=== PATIENT | female | born 1980 | race Caucasian/White ===

== ENCOUNTER 2017-08-06 10:53 | Emergency (ER) | payer SELFPAY ==
[~2017-08-06] VITALS: Ht 165.1 cm; Wt 77.1 kg
[2017-08-06 11:46] VITALS: BP 128/60; Ht 165.1 cm; Wt 77.1 kg
== END 2017-08-06 12:59 | disposition home or self-care (01) ==
LOC: ED 10:53
DX: J45.901 Unspecified asthma with (acute) exacerbation (principal); M32.9 Systemic lupus erythematosus, unspecified
CPT/HCPCS: J7512; J7613; J7644

== ENCOUNTER 2017-08-16 10:22 | Emergency (ER) | payer MEDICAID ==
[~2017-08-16] VITALS: Ht 162.6 cm; Wt 82.5 kg
[2017-08-16 10:24] VITALS: Ht 162.6 cm; Wt 82.5 kg
[2017-08-16 11:12] LABS: CALCIUM 8.5 mg/dL (8.5-10.1); CHLORIDE SERUM 107 mmol/L (98-107); GFR1 > 60 mL/min; GLUCOSE SERUM 94 mg/dL (74-106); POTASSIUM SERUM 4.1 mmol/L (3.5-5.1); SODIUM SERUM 140 mmol/L (136-145)
[2017-08-16 11:24] LABS: BASOPHIL % 0.5 % (0-2); PLATELET COUNT 358 x10^3mcL (130-400)
[2017-08-16 11:26] LABS: RED CELL DISTRIBUTION WIDTH 17.2 % (11.5-14.5)
[2017-08-16 11:30] LABS: rbc morphology (normal/abnorm) ABNORMAL (NORMAL)
[2017-08-16 13:03] LABS: BASOPHIL % 0.4 % (0-2); PLATELET COUNT 318 x10^3mcL (130-400)
[2017-08-16 13:06] LABS: RED CELL DISTRIBUTION WIDTH 17.2 % (11.5-14.5)
[2017-08-16 13:07] LABS: rbc morphology (normal/abnorm) ABNORMAL (NORMAL)
[2017-08-16 13:26] VITALS: BP 131/67
== END 2017-08-16 13:26 | disposition home or self-care (01) ==
LOC: ED 10:22
PROVIDERS: Emergency Medicine
DX: N93.8 Other specified abnormal uterine and vaginal bleeding (principal); J45.909 Unspecified asthma, uncomplicated; F17.200 Nicotine dependence, unspecified, uncomplicated; M32.9 Systemic lupus erythematosus, unspecified
CPT/HCPCS: J1410; J3490; J7030; Q0092

== ENCOUNTER 2017-11-04 11:49 | Emergency (ER) | payer SELFPAY ==
[~2017-11-04] VITALS: Ht 162.6 cm; Wt 81.6 kg
[2017-11-04 12:52] VITALS: BP 145/88
== END 2017-11-04 12:52 | disposition home or self-care (01) ==
LOC: ED 11:49
DX: L29.9 Pruritus, unspecified (principal); J45.909 Unspecified asthma, uncomplicated

== ENCOUNTER 2018-11-15 18:56 | Emergency (ER) | payer MEDICAID ==
[~2018-11-15] VITALS: Ht 167.6 cm; Wt 79.4 kg
[2018-11-15 19:09] VITALS: Ht 167.6 cm; Wt 79.4 kg
[2018-11-15 21:20] VITALS: BP 132/68
== END 2018-11-15 21:20 | disposition home or self-care (01) ==
LOC: ED 18:56
DX: J45.901 Unspecified asthma with (acute) exacerbation (principal); F43.9 Reaction to severe stress, unspecified; M32.9 Systemic lupus erythematosus, unspecified
CPT/HCPCS: J7512; J7620